=== PATIENT | female | born 1975 | race Caucasian/White ===

== ENCOUNTER 2024-08-02 22:15 | Emergency (ER) | payer MEDICAID ==
[2024-08-02 22:37] VITALS: BP 110/62; PULSE 65
[2024-08-02] MEDS: Sodium Chloride 0.9% 10 ML Syringe FLUSH PRN (22:55)
[2024-08-02] MEDS: Ondansetron 4 MG/2 ML SDV IVPUSH ONE (22:55)
[2024-08-02] MEDS: HYDROmorphone 0.5 MG/0.5 ML Syringe IVPUSH ONE (22:57)
[2024-08-03] MEDS: LORazepam 2 MG/ML SDV IVPUSH ONE (00:42)
[2024-08-03] MEDS: HYDROmorphone 0.5 MG/0.5 ML Syringe IVPUSH ONE (01:06)
== END 2024-08-03 01:17 | disposition home or self-care (01) ==
LOC: JP.ED 22:15
DX: S43.101A Unspecified dislocation of right acromioclavicular joint, initial encounter (principal); Z86.16 Personal history of COVID-19; Z90.710 Acquired absence of both cervix and uterus; Z79.899 Other long term (current) drug therapy; X50.1XXA Overexertion from prolonged static or awkward postures, initial encounter; Y93.67 Activity, basketball
CPT/HCPCS: 73030; 96374; 96375; 96376; 99283; J2060; J2405; J1171